=== PATIENT | male | born 1990 | race Caucasian/White ===

== ENCOUNTER 2017-04-08 05:09 | Emergency (ER) | payer SELFPAY ==
[~2017-04-08] VITALS: Ht 172.7 cm; Wt 81.8 kg
[2017-04-08 05:11] VITALS: BP 135/90
[2017-04-08] MEDS ORDERED: THIAMINE 100MG TABLET ONE (05:55)
[2017-04-08] MEDS ORDERED: THIAMINE 100MG TABLET PO ONE (06:00)
== END 2017-04-08 06:10 | disposition home or self-care (01) ==
LOC: ED 06:02
DX: F10.129 Alcohol abuse with intoxication, unspecified (principal); F19.10 Other psychoactive substance abuse, uncomplicated
CPT/HCPCS: 99283

== ENCOUNTER 2018-04-21 03:10 | Emergency (ER) | payer MEDICAID ==
[~2018-04-21] VITALS: Ht 180.3 cm; Wt 86.4 kg
[2018-04-21] MEDS ORDERED: SODIUM CHLORIDE FLUSH 10ML SYR IVF ONE (03:30)
[2018-04-21 04:06] LABS: BASOPHILS # (AUTO) 0.04 x10^3/uL (0-0.1); BASOPHILS % (AUTO) 1 % (0-1); EOSINOPHILS # (AUTO) 0.11 x10^3/uL (0-0.4); EOSINOPHILS % (AUTO) 1 % (1-7); LYMPHOCYTES # (AUTO) 1.03 x10^3/uL (1-3.4); LYMPHOCYTES % (AUTO) 12 % (22-44); MD NO; MEAN CORPUSCULAR HEMOGLOBIN 33.6 pg (27.5-34.5); MEAN CORPUSCULAR HGB CONC 34.3 g/dL (33.2-36.2); MEAN CORPUSCULAR VOLUME 97.9 fL (81-97); MEAN PLATELET VOLUME 8.2 fL (7.4-10.4); MONOCYTES # (AUTO) 0.52 x10^3/uL (0.2-0.8); MONOCYTES % (AUTO) 6 % (2-9); NEUTROPHILS # (AUTO) 6.76 x10^3/uL (1.8-6.8); NEUTROPHILS % (AUTO) 80 % (42-75); PLATELET COUNT 309 x10^3/uL (130-400); RED BLOOD COUNT 4.92 x10^6/uL (4.38-5.82); RED CELL DISTRIBUTION WIDTH 13.6 % (9.4-14.8)
[2018-04-21 04:17] LABS: ALBUMIN 4.2 g/dL (3.4-5.0); ANION GAP 9 mmol/L (5-15); CALCIUM 8.3 mg/dL (8.5-10.1); CHLORIDE 110 mmol/L (98-107)
[2018-04-21 04:18] LABS: CREATININE 0.95 mg/dL (0.7-1.3)
[2018-04-21 06:51] VITALS: BP 112/60
== END 2018-04-21 06:53 | disposition home or self-care (01) ==
LOC: ED 06:50
DX: S02.32XA Fracture of orbital floor, left side, initial encounter for closed fracture (principal); S00.03XA Contusion of scalp, initial encounter; S00.12XA Contusion of left eyelid and periocular area, initial encounter; S00.11XA Contusion of right eyelid and periocular area, initial encounter; S00.83XA Contusion of other part of head, initial encounter; F10.120 Alcohol abuse with intoxication, uncomplicated; G31.2 Degeneration of nervous system due to alcohol; W19.XXXA Unspecified fall, initial encounter; Y93.89 Activity, other specified; Y92.89 Other specified places as the place of occurrence of the external cause; Y99.8 Other external cause status
CPT/HCPCS: 36415; 70450; 70486; 72125; 80048; 80307; 82040; 85025; 99285

== ENCOUNTER 2018-09-03 14:36 | Emergency (ER) | payer MEDICAID ==
[~2018-09-03] VITALS: Ht 172.7 cm; Wt 82.0 kg
[2018-09-03 14:43] VITALS: BP 132/81
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
--- NOTE | 2018-09-03 15:21 | NUR ---
Pt resting on [facility]. LEONILA. Sitter near doorway in direct line of sight. Pt yelling, "FUCK, MONTYK", in room.
--- NOTE | 2018-09-03 16:14 | NUR ---
Recieved report from MATT Ball. All questions answered.
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
--- NOTE | 2018-09-03 16:19 | NUR ---
Two prior notes charted under wrong ED RN sign in name. Two prior notes written by this ED RN: Recieved report from MATT Ball. All questions answered.
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
--- NOTE | 2018-09-03 16:20 | NUR ---
Pt refusing to have vital signs taken or to be connected to monitors. Pt transported on gurney to CT.
--- NOTE | 2018-09-03 16:36 | NUR ---
Pt back to room from CT on maxx. LEONILA. Pt yelling at ED RN "you alberto damian".
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
--- NOTE | 2018-09-03 16:42 | NUR ---
Pt ambulating in room. Pt refusing to stay seated on gurney.
--- NOTE | 2018-09-03 17:06 | NUR ---
Pt allowed ED RN to place PIV for MRI. Pt states, "Thank you for taking the time to take care of me. I appreciate it." Pt calm at this time. Pt transported on gurney to MRI at this time.
--- NOTE | 2018-09-03 17:07 | NUR ---
Pt states, "about a year ago I was told I have a benign brain tumor."
[2018-09-03] MEDS ORDERED: GADOBUTROL 10 MMOL/10 ML PFS ONE (17:25)
--- NOTE | 2018-09-03 17:39 | NUR ---
Pt back to room from MRI. Pt standing in doorway talking to sitter. Pt impulsive and not wnating to stay seated on gurney.
--- NOTE | 2018-09-03 17:41 | NUR ---
Pt ke[place] ED room door and yells, "Fuck, Fuck".
--- NOTE | 2018-09-03 19:07 | NUR ---
Patient given discharge instructions and they have confirmed that they understand the instructions. Patient ambulatory with steady gait. Pt left with back pack and cell phone that were in one personal belongings bag in ED locker. Pt left with discharge paperwork and all personal belongings.
== END 2018-09-03 19:10 | disposition home or self-care (01) ==
LOC: ED 17:11
DX: F10.220 Alcohol dependence with intoxication, uncomplicated (principal); R51 Headache
CPT/HCPCS: 70450; 70553; 99284; A9585

== ENCOUNTER 2018-09-19 07:48 | Emergency (ER) | payer MEDICAID ==
[~2018-09-19] VITALS: Ht 172.7 cm; Wt 80.7 kg
--- NOTE | 2018-09-19 09:06 | NUR ---
THIS IS A 28 YEAR OLD MALE WHO C/O OF ETOH DETOXING NEED.
[2018-09-19] MEDS ORDERED: PROMETHAZINE 25 MG/ML, 1ML ONE (09:18)
[2018-09-19] MEDS ORDERED: THIAMINE 100MG TABLET ONE (09:18)
--- NOTE | 2018-09-19 09:24 | NUR ---
MEDICATED PER ORDERS, TO CT SCAN.
[2018-09-19] MEDS ORDERED: PROMETHAZINE 25 MG/ML, 1ML IM ONE (09:30)
[2018-09-19] MEDS ORDERED: THIAMINE 100MG TABLET PO ONE (09:30)
--- NOTE | 2018-09-19 10:11 | NUR ---
PT DOZING INTERMITTENLY, AROUSES TO NAME. "JUST TIRED" NO NAUSEA AT THIS TIME. PT UPDATED ON POC. NO NEEDS EXPRESSED AT THIS TIME.
[2018-09-19 10:14] LABS: BASOPHILS # (AUTO) 0.03 x10^3/uL (0-0.1); BASOPHILS % (AUTO) 0 % (0-1); EOSINOPHILS # (AUTO) 0.03 x10^3/uL (0-0.4); EOSINOPHILS % (AUTO) 0 % (1-7); LYMPHOCYTES % (AUTO) 16 % (22-44); MD NO; MEAN CORPUSCULAR HEMOGLOBIN 32.3 pg (27.5-34.5); MEAN CORPUSCULAR HGB CONC 33.8 g/dL (33.2-36.2); MEAN CORPUSCULAR VOLUME 95.6 fL (81-97); MEAN PLATELET VOLUME 7.3 fL (7.4-10.4); MONOCYTES # (AUTO) 0.37 x10^3/uL (0.2-0.8); MONOCYTES % (AUTO) 4 % (2-9); NEUTROPHILS # (AUTO) 7.62 x10^3/uL (1.8-6.8); NEUTROPHILS % (AUTO) 80 % (42-75); PLATELET COUNT 335 x10^3/uL (130-400); RED BLOOD COUNT 4.42 x10^6/uL (4.38-5.82); RED CELL DISTRIBUTION WIDTH 14.6 % (9.4-14.8)
[2018-09-19 10:21] LABS: ALBUMIN 4.3 g/dL (3.4-5.0); ANION GAP 11 mmol/L (5-15); CALCIUM 8.2 mg/dL (8.5-10.1); CHLORIDE 106 mmol/L (98-107); CREATININE 0.82 mg/dL (0.7-1.3)
--- NOTE | 2018-09-19 11:40 | NUR ---
Patient/Caregiver given discharge instructions and they have confirmed that they understand the instructions. Patient ambulatory with steady gait.
[2018-09-19 11:41] VITALS: BP 126/60
== END 2018-09-19 11:43 | disposition home or self-care (01) ==
LOC: ED 10:21
DX: S39.012A Strain of muscle, fascia and tendon of lower back, initial encounter (principal); S09.8XXA Other specified injuries of head, initial encounter; G89.11 Acute pain due to trauma; F10.231 Alcohol dependence with withdrawal delirium; Y08.89XA Assault by other specified means, initial encounter; Y93.89 Activity, other specified; Y92.89 Other specified places as the place of occurrence of the external cause; Y99.8 Other external cause status; Y90.9 Presence of alcohol in blood, level not specified
CPT/HCPCS: 36415; 70450; 72110; 80048; 82040; 85025; 96372; 99284; J2550

== ENCOUNTER 2018-09-26 01:41 | Emergency (ER) | payer MEDICAID | END 2018-09-26 03:32 | disposition left against medical advice (07) | LOC: ED 01:43 | DX: F10.129 Alcohol abuse with intoxication, unspecified (principal); Z53.21 Procedure and treatment not carried out due to patient leaving prior to being seen by health care provider ==

== ENCOUNTER 2018-10-11 04:59 | Emergency (ER) | payer MEDICAID ==
[~2018-10-11] VITALS: Ht 172.7 cm; Wt 79.0 kg
--- NOTE | 2018-10-11 05:12 | NUR ---
PA AT BEDSIDE
[2018-10-11] MEDS ORDERED: METOCLOPRAMIDE 10MG TABLET PO ONE (05:30)
[2018-10-11] MEDS ORDERED: DIPHENHYDRAMINE 25 MG CAPSULE PO ONE (05:30)
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
--- NOTE | 2018-10-11 06:22 | NUR ---
PT SLEEPING WITH NO NEEDS AT THIS TIME. VSS. CALL LIGHT IN REACH
[2018-10-11] MEDS ORDERED: IBUPROFEN 600 MG TABLET ONE (08:20)
[2018-10-11 08:26] VITALS: BP 103/65
[2018-10-11] MEDS ORDERED: IBUPROFEN 600 MG TABLET PO ONE (08:30)
--- NOTE | 2018-10-11 09:01 | NUR ---
Patient/Caregiver given discharge instructions and they have confirmed that they understand the instructions. Patient ambulatory with steady gait.
== END 2018-10-11 09:02 | disposition home or self-care (01) ==
LOC: ED 06:08
DX: R51 Headache (principal); F10.10 Alcohol abuse, uncomplicated; Z72.9 Problem related to lifestyle, unspecified
CPT/HCPCS: 99284; Q0163